=== PATIENT | female | born 1945 | race Caucasian/White ===

== ENCOUNTER 2018-04-04 11:01 | Emergency (ER) | payer MEDICARE ==
[~2018-04-04] VITALS: Ht 165.1 cm; Wt 81.6 kg
[2018-04-04] MEDS ORDERED: AMLODIPINE BESY10 MG PO (11:56)
[2018-04-04] MEDS ORDERED: LISINOPRIL10 MG PO (11:56)
[2018-04-04] MEDS ORDERED: MAGNESIUM/ALUMINUM/SIMETHICONE 30 ML UDC PO ONE (12:15)
--- NOTE | 2018-04-04 12:16 | Diagnostic Imaging Report ---
EXAM: PA and lateral views of the chest. COMPARISON: None CLINICAL HISTORY: FINDINGS: Lines/tubes: None. Lungs: The lungs are well inflated and clear. Pleura: There is no pleural effusion or pneumothorax. Heart and mediastinum: The cardiomediastinal silhouette is normal. Bones and soft tissues: Portable upright hardware overlying the lower cervical and upper thoracic spine. Mild infiltration of the right hemidiaphragm. IMPRESSION: No acute cardiopulmonary abnormalities. Signed by: Dr. Juanita Ellis M.D. on 04/04/2018 12:12 PM
== END 2018-04-04 13:04 | disposition home or self-care (01) ==
LOC: FSED 11:01
DX: R00.2 Palpitations (principal); F41.1 Generalized anxiety disorder; R53.1 Weakness; R42 Dizziness and giddiness; I10 Essential (primary) hypertension; E11.9 Type 2 diabetes mellitus without complications; J44.9 Chronic obstructive pulmonary disease, unspecified; N18.9 Chronic kidney disease, unspecified; F17.210 Nicotine dependence, cigarettes, uncomplicated
CPT/HCPCS: 71046; 80053; 81003; 82553; 84484; 85025; 93005; 99284

== ENCOUNTER 2019-02-06 19:48 | Emergency (ER) | payer MEDICARE ==
[~2019-02-06] VITALS: Ht 165.1 cm; Wt 81.6 kg
[~2019-02-06 19:48] MED LIST: AMLODIPINE BESY10 MG PO; LISINOPRIL10 MG PO
--- OUTSIDE RECORDS SUMMARY | 2019-02-06 19:51 | XMS REPORT ---
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 Allergies, Adverse Reactions, Alerts This patient has no known allergies or adverse reactions. Medications This patient has no known medications. Results Test Description Test Time Test Comments Text Results Atomic Results Result Comments POCT-GLUCOSE METER 2018-12-17 12:10:00 POC-GLUCOSE METER (BEAKER) (test yjly=6698) 158 mg/dL 70-110 TESTED AT [address] [address] BASIC METABOLIC [id number] 11:21:00* Test Item Value Reference Range Comments SODIUM (BEAKER) (test mgxt=453) 138 meq/L 136-145 POTASSIUM (BEAKER) (test ljqu=279) 3.5 meq/L 3.5-5.1 CHLORIDE (BEAKER) (test bpyk=578) 101 meq/L 98-107 CO2 (BEAKER) (test vhpj=736) 27 meq/L 22-29 BLOOD UREA NITROGEN (BEAKER) (test qjeu=426) 23 mg/dL 7-21 CREATININE (BEAKER) (test wnok=496) 1.31 mg/dL 0.57-1.25 GLUCOSE RANDOM (BEAKER) (test flnj=129) 180 mg/dL 70-105 CALCIUM (BEAKER) (test bzdy=423) 8.7 mg/dL 8.4-10.2 EGFR (BEAKER) (test emnv=0879) 40 mL/min/1.73 sq m ESTIMATED GFR IS NOT ACCURATE CREATININE CLEARANCE IN PREDICTING GLOMERULAR FILTRATION RATE. ESTIMATED GFR IS NOT APPLICABLE FOR DIALYSIS PATIENTS. POCT-GLUCOSE [id number] 09:00:00* Test Item Value Reference Range Comments POC-GLUCOSE METER (BEAKER) (test vnjn=3172) 119 mg/dL 70-110 TESTED AT [address] [address] BLOOD [id number] 02:01:00* Test Item Value Reference Range Comments CULTURE (BEAKER) (test kfwb=3809) No growth in 5 days BLOOD [id number] 02:01:00* Test Item Value Reference Range Comments CULTURE (BEAKER) (test vetu=3571) No growth in 5 days POCT-GLUCOSE [id number] 21:13:00* Test Item Value Reference Range Comments POC-GLUCOSE METER (BEAKER) (test tcmu=0887) 170 mg/dL 70-110 TESTED AT [address] [address] POCT-GLUCOSE [id number] 19:07:00* Test Item Value Reference Range Comments POC-GLUCOSE METER (BEAKER) (test czux=9545) 131 mg/dL 70-110 TESTED AT [address] [address] POCT-GLUCOSE [id number] 15:49:00* Test Item Value Reference Range Comments POC-GLUCOSE METER (BEAKER) (test pxlp=4957) 117 mg/dL 70-110 TESTED AT [address] [address] VANCOMYCIN LEVEL, [id number] 12:58:00* Test Item Value Reference Range Comments VANCOMYCIN TROUGH (BEAKER) (test oamj=444) 18.8 ug/mL 10.0-20.0 Hold vancomycin if trough >20POCT-GLUCOSE [id number] 12:13:00* Test Item Value Reference Range Comments POC-GLUCOSE METER (BEAKER) (test ofki=3513) 183 mg/dL 70-110 TESTED AT [address] [address] POCT-GLUCOSE [id number] 09:06:00* Test Item Value Reference Range Comments POC-GLUCOSE METER (BEAKER) (test iqbr=7952) 135 mg/dL 70-110 TESTED AT [address] [address] POCT-GLUCOSE [id number] 21:37:00* Test Item Value Reference Range Comments POC-GLUCOSE METER (BEAKER) (test xeie=1462) 175 mg/dL 70-110 TESTED AT [address] [address] RAD, CHEST, 2 [id number] 15:32:00Reason for exam:->coughFINAL REPORT INDICATION: cough COMPARISON: December 14, 2018 TECHNIQUE: Frontal and lateral views of the chest. IMPRESSION:Lungs and pleura: Bibasilar subsegmental atelectasis, greater on the left. Moderate to large left effusion unchanged.Heart and mediastinum: Normal heart size. Unremarkable mediastinal contours.Osseous structures: No acute abnormality.Additional findings: None. Signed: JR Azeem, Leonardo Allen Verified Date/Time: 12/15/2018 1 5:32:27 Reading Location: [address] Consult Reading Room Electronically si gned by: LEONARDO IGLESIAS on 12/15/2018 03:32 PM POCT-GLUCOSE METER 2018-12-15 12:51:00* Test Item Value Reference Range Comments POC-GLUCOSE METER (BEAKER) (test yaza=5347) 248 mg/dL 70-110 TESTED AT [place] [id number] [facility] [address] POCT-GLUCOSE [id number] 07:31:00* Test Item Value Reference Range Comments POC-GLUCOSE METER (BEAKER) (test nezq=9204) 128 mg/dL 70-110 TESTED AT [address] [address] [id number] 03:58:00* Test Item Value Reference Range Comments PHOSPHORUS (BEAKER) (test dmve=994) 3.2 mg/dL 2.3-4.7 [id number] 03:58:00* Test Item Value Reference Range Comments MAGNESIUM (BEAKER) (test fgjt=577) 2.0 mg/dL 1.6-2.6 COMPREHENSIVE METABOLIC [id number] 03:58:00* Test Item Value Reference Range Comments TOTAL PROTEIN (BEAKER) (test muri=898) 6.1 gm/dL 6.0-8.3 ALBUMIN (BEAKER) (test ixic=4509) 2.8 g/dL 3.5-5.0 ALKALINE PHOSPHATASE (BEAKER) (test fmdc=040) 80 U/L 40-150 BILIRUBIN TOTAL (BEAKER) (test gpke=482) 0.3 mg/dL 0.2-1.2 SODIUM (BEAKER) (test yuns=312) 137 meq/L 136-145 POTASSIUM (BEAKER) (test lnru=507) 4.4 meq/L 3.5-5.1 CHLORIDE (BEAKER) (test zshz=583) 103 meq/L 98-107 CO2 (BEAKER) (test tecj=505) 26 meq/L 22-29 BLOOD UREA NITROGEN (BEAKER) (test tjcn=469) 29 mg/dL 7-21 CREATININE (BEAKER) (test cmgh=659) 1.36 mg/dL 0.57-1.25 GLUCOSE RANDOM (BEAKER) (test yqic=097) 132 mg/dL 70-105 CALCIUM (BEAKER) (test hjxl=797) 8.0 mg/dL 8.4-10.2 AST (SGOT) (BEAKER) (test ezex=045) 14 U/L 5-34 ALT (SGPT) (BEAKER) (test uzvo=210) 13 U/L 6-55 EGFR (BEAKER) (test gxej=3399) 38 mL/min/1.73 sq m ESTIMATED GFR IS NOT ACCURATE CREATININE CLEARANCE IN PREDICTING GLOMERULAR FILTRATION RATE. ESTIMATED GFR IS NOT APPLICABLE FOR DIALYSIS PATIENTS. CBC W/PLT COUNT & AUTO [id number] 03:46:00* Test Item Value Reference Range Comments WHITE BLOOD CELL COUNT (BEAKER) (test swqu=015) 10.8 K/ L 3.5-10.5 RED BLOOD CELL COUNT (BEAKER) (test jnaf=585) 3.01 M/ L 3.93-5.22 HEMOGLOBIN (BEAKER) (test llvb=278) 8.0 GM/DL 11.2-15.7 HEMATOCRIT (BEAKER) (test dzwo=446) 26.0 % 34.1-44.9 MEAN CORPUSCULAR VOLUME (BEAKER) (test svuu=994) 86.4 fL 79.4-94.8 MEAN CORPUSCULAR HEMOGLOBIN (BEAKER) (test tdyd=928) 26.6 pg 25.6-32.2 MEAN CORPUSCULAR HEMOGLOBIN CONC (BEAKER) (test qivv=510) 30.8 GM/DL 32.2-35.5 RED CELL DISTRIBUTION WIDTH (BEAKER) (test ytcc=348) 16.7 % 11.7-14.4 PLATELET COUNT (BEAKER) (test quxg=669) 265 K/CU MM 150-450 MEAN PLATELET VOLUME (BEAKER) (test agvq=329) 9.1 fL 9.4-12.3 NUCLEATED RED BLOOD CELLS (BEAKER) (test uder=015) 0 /100 WBC 0-0 NEUTROPHILS RELATIVE PERCENT (BEAKER) (test jhqs=166) 79 % LYMPHOCYTES RELATIVE PERCENT (BEAKER) (test xfbb=542) 11 % MONOCYTES RELATIVE PERCENT (BEAKER) (test xaop=786) 8 % EOSINOPHILS RELATIVE PERCENT (BEAKER) (test hcwe=250) 1 % BASOPHILS RELATIVE PERCENT (BEAKER) (test kibr=512) 0 % NEUTROPHILS ABSOLUTE COUNT (BEAKER) (test brzp=485) 8.53 K/ L 1.56-6.13 LYMPHOCYTES ABSOLUTE COUNT (BEAKER) (test nyhz=679) 1.13 K/ L 1.18-3.74 MONOCYTES ABSOLUTE COUNT (BEAKER) (test jtlg=058) 0.82 K/ L 0.24-0.36 EOSINOPHILS ABSOLUTE COUNT (BEAKER) (test lazk=215) 0.11 K/ L 0.04-0.36 BASOPHILS ABSOLUTE COUNT (BEAKER) (test bwdx=027) 0.03 K/ L 0.01-0.08 IMMATURE GRANULOCYTES-RELATIVE PERCENT (BEAKER) (test axby=4201) 2 % 0-1 POCT-GLUCOSE [id number] 21:33:00* Test Item Value Reference Range Comments POC-GLUCOSE METER (BEAKER) (test bsux=9466) 164 mg/dL 70-110 TESTED AT [facility] [address] [facility] [address] POCT-GLUCOSE [id number] 17:04:00* Test Item Value Reference Range Comments POC-GLUCOSE METER (BEAKER) (test gdqv=9295) 147 mg/dL 70-110 TESTED AT [facility] [address] [facility] [address] HEMOGLOBIN AND [id number] 16:37:00* Test Item Value Reference Range Comments HEMOGLOBIN (BEAKER) (test mqni=382) 8.6 GM/DL 11.2-15.7 HEMATOCRIT (BEAKER) (test potl=064) 27.2 % 34.1-44.9 POCT-GLUCOSE [id number] 14:39:00* Test Item Value Reference Range Comments POC-GLUCOSE METER (BEAKER) (test aaxp=9482) 193 mg/dL 70-110 TESTED AT [facility] [address] [facility] [address] POCT-GLUCOSE [id number] 08:05:00* Test Item Value Reference Range Comments POC-GLUCOSE METER (BEAKER) (test wyyu=3436) 154 mg/dL 70-110 TESTED AT [facility] [address] [facility] [address] RAD, CHEST, 1 VIEW, NON [id number] 07:44:00Reason for exam:->coughShould this be performed at the bedside?->YesFINAL REPORT Chest, one view HISTORY: Cough Comparison: 12/12/2018 Findings: Lungs: Stable left basilar consolidation. Heart: Normal in size. Pleura: Stable left pleural effusion. No pneumothorax is appreciated. Bones: Unremarkable. Lines/tubes: Interval removal of previous Mchenry-Natacha catheter. IMPRESSION: No significant interval change. Signed: Chuy Coughlin [facility] Verified Date/Time: 12/14/2018 07:44:05 Reading Location: [facility] [id number] Ortho Consult Reading Room ESIUM 2018-12-14 07:35:00* Test Item Value Reference Range Comments MAGNESIUM (BEAKER) (test skpc=537) 2.1 mg/dL 1.6-2.6 COMPREHENSIVE METABOLIC [id number] 07:35:00* Test Item Value Reference Range Comments TOTAL PROTEIN (BEAKER) (test kkod=740) 5.8 gm/dL 6.0-8.3 ALBUMIN (BEAKER) (test imhp=8776) 2.7 g/dL 3.5-5.0 ALKALINE PHOSPHATASE (BEAKER) (test lcjz=649) 76 U/L 40-150 BILIRUBIN TOTAL (BEAKER) (test ldpq=454) 0.3 mg/dL 0.2-1.2 SODIUM (BEAKER) (test srlo=391) 137 meq/L 136-145 POTASSIUM (BEAKER) (test rzpj=764) 4.0 meq/L 3.5-5.1 CHLORIDE (BEAKER) (test eied=324) 105 meq/L 98-107 CO2 (BEAKER) (test cnyp=167) 21 meq/L 22-29 BLOOD UREA NITROGEN (BEAKER) (test vibb=716) 31 mg/dL 7-21 CREATININE (BEAKER) (test cwxq=246) 1.50 mg/dL 0.57-1.25 GLUCOSE RANDOM (BEAKER) (test wzxl=443) 119 mg/dL 70-105 CALCIUM (BEAKER) (test nmpg=243) 8.3 mg/dL 8.4-10.2 AST (SGOT) (BEAKER) (test awdi=771) 17 U/L 5-34 ALT (SGPT) (BEAKER) (test objj=303) 9 U/L 6-55 EGFR (BEAKER) (test rbai=8560) 34 mL/min/1.73 sq m ESTIMATED GFR IS NOT ACCURATE CREATININE CLEARANCE IN PREDICTING GLOMERULAR FILTRATION RATE. ESTIMATED GFR IS NOT APPLICABLE FOR DIALYSIS PATIENTS. Specimen slightly [id number] 07:34:00* Test Item Value Reference Range Comments PHOSPHORUS (BEAKER) (test pats=852) 2.8 mg/dL 2.3-4.7 CBC W/PLT COUNT & AUTO [id number] 04:06:00* Test Item Value Reference Range Comments WHITE BLOOD CELL COUNT (BEAKER) (test dnuo=189) 10.8 K/ L 3.5-10.5 RED BLOOD CELL COUNT (BEAKER) (test bowr=512) 2.82 M/ L 3.93-5.22 HEMOGLOBIN (BEAKER) (test jqyj=732) 7.6 GM/DL 11.2-15.7 HEMATOCRIT (BEAKER) (test nvsb=330) 24.0 % 34.1-44.9 MEAN CORPUSCULAR VOLUME (BEAKER) (test sbxy=351) 85.1 fL 79.4-94.8 MEAN CORPUSCULAR HEMOGLOBIN (BEAKER) (test lvnn=252) 27.0 pg 25.6-32.2 MEAN CORPUSCULAR HEMOGLOBIN CONC (BEAKER) (test sryh=519) 31.7 GM/DL 32.2-35.5 RED CELL DISTRIBUTION WIDTH (BEAKER) (test xmot=497) 16.5 % 11.7-14.4 PLATELET COUNT (BEAKER) (test oggl=713) 225 K/CU MM 150-450 MEAN PLATELET VOLUME (BEAKER) (test hsgc=204) 9.6 fL 9.4-12.3 NUCLEATED RED BLOOD CELLS (BEAKER) (test fijx=090) 0 /100 WBC 0-0 NEUTROPHILS RELATIVE PERCENT (BEAKER) (test olrn=890) 78 % LYMPHOCYTES RELATIVE PERCENT (BEAKER) (test bxao=900) 12 % MONOCYTES RELATIVE PERCENT (BEAKER) (test gtce=027) 8 % EOSINOPHILS RELATIVE PERCENT (BEAKER) (test yrsu=256) 1 % BASOPHILS RELATIVE PERCENT (BEAKER) (test vjqr=494) 0 % NEUTROPHILS ABSOLUTE COUNT (BEAKER) (test ctcm=993) 8.41 K/ L 1.56-6.13 LYMPHOCYTES ABSOLUTE COUNT (BEAKER) (test rurz=223) 1.24 K/ L 1.18-3.74 MONOCYTES ABSOLUTE COUNT (BEAKER) (test azmz=990) 0.89 K/ L 0.24-0.36 EOSINOPHILS ABSOLUTE COUNT (BEAKER) (test srtc=456) 0.08 K/ L 0.04-0.36 BASOPHILS ABSOLUTE COUNT (BEAKER) (test holv=075) 0.02 K/ L 0.01-0.08 IMMATURE GRANULOCYTES-RELATIVE PERCENT (BEAKER) (test qotb=0784) 1 % 0-1 POCT-GLUCOSE [id number] 21:39:00* Test Item Value Reference Range Comments POC-GLUCOSE METER (BEAKER) (test enpj=1925) 167 mg/dL 70-110 TESTED AT [address] [address] HEMOGLOBIN AND [id number] 20:38:00* Test Item Value Reference Range Comments HEMOGLOBIN (BEAKER) (test ghtw=700) 8.5 GM/DL 11.2-15.7 HEMATOCRIT (BEAKER) (test owbq=682) 26.9 % 34.1-44.9 POCT-GLUCOSE [id number] 18:09:00* Test Item Value Reference Range Comments POC-GLUCOSE METER (BEAKER) (test iqhi=4180) 222 mg/dL 70-110 TESTED AT [address] [address] VANCOMYCIN LEVEL, [id number] 15:52:00* Test Item Value Reference Range Comments VANCOMYCIN RANDOM (BEAKER) (test lxod=923) 14.6 ug/mL Reference Range: No NormalsHEMOGLOBIN AND [id number] 15:31:00* Test Item Value Reference Range Comments HEMOGLOBIN (BEAKER) (test riov=466) 8.6 GM/DL 11.2-15.7 HEMATOCRIT (BEAKER) (test bkou=792) 27.2 % 34.1-44.9 POCT-GLUCOSE [id number] 12:41:00* Test Item Value Reference Range Comments POC-GLUCOSE METER (BEAKER) (test ilno=5497) 212 mg/dL 70-110 TESTED AT [facility] [address] [facility] [address] POCT-GLUCOSE [id number] 08:08:00* Test Item Value Reference Range Comments POC-GLUCOSE METER (BEAKER) (test qjgy=4157) 226 mg/dL 70-110 TESTED AT [place] [address] [facility] [address] COMPREHENSIVE METABOLIC [id number] 06:31:00* Test Item Value Reference Range Comments TOTAL PROTEIN (BEAKER) (test mbwy=530) 5.6 gm/dL 6.0-8.3 ALBUMIN (BEAKER) (test oosj=9912) 2.6 g/dL 3.5-5.0 ALKALINE PHOSPHATASE (BEAKER) (test bkpo=397) 65 U/L 40-150 BILIRUBIN TOTAL (BEAKER) (test lyxi=212) 0.4 mg/dL 0.2-1.2 SODIUM (BEAKER) (test ixtj=318) 131 meq/L 136-145 POTASSIUM (BEAKER) (test vrbd=395) 4.1 meq/L 3.5-5.1 CHLORIDE (BEAKER) (test qblj=256) 101 meq/L 98-107 CO2 (BEAKER) (test hypu=606) 20 meq/L 22-29 BLOOD UREA NITROGEN (BEAKER) (test auos=905) 34 mg/dL 7-21 CREATININE (BEAKER) (test actg=779) 2.02 mg/dL 0.57-1.25 GLUCOSE RANDOM (BEAKER) (test urxj=545) 185 mg/dL 70-105 CALCIUM (BEAKER) (test wgvo=687) 7.7 mg/dL 8.4-10.2 AST (SGOT) (BEAKER) (test aapt=271) 11 U/L 5-34 ALT (SGPT) (BEAKER) (test fonp=795) 8 U/L 6-55 EGFR (BEAKER) (test tcce=9207) 24 mL/min/1.73 sq m ESTIMATED GFR IS NOT ACCURATE CREATININE CLEARANCE IN PREDICTING GLOMERULAR FILTRATION RATE. ESTIMATED GFR IS NOT APPLICABLE FOR DIALYSIS PATIENTS. [id number] 06:09:00* Test Item Value Reference Range Comments PHOSPHORUS (BEAKER) (test vwyw=578) 3.4 mg/dL 2.3-4.7 [id number] 06:09:00* Test Item Value Reference Range Comments MAGNESIUM (BEAKER) (test abcq=658) 1.6 mg/dL 1.6-2.6 CBC W/PLT COUNT & AUTO [id number] 04:34:00* Test Item Value Reference Range Comments WHITE BLOOD CELL COUNT (BEAKER) (test ytdx=977) 13.0 K/ L 3.5-10.5 RED BLOOD CELL COUNT (BEAKER) (test blfh=883) 2.70 M/ L 3.93-5.22 HEMOGLOBIN (BEAKER) (test pzjw=547) 7.4 GM/DL 11.2-15.7 HEMATOCRIT (BEAKER) (test hbls=816) 23.3 % 34.1-44.9 MEAN CORPUSCULAR VOLUME (BEAKER) (test porx=720) 86.3 fL 79.4-94.8 MEAN CORPUSCULAR HEMOGLOBIN (BEAKER) (test lbui=041) 27.4 pg 25.6-32.2 MEAN CORPUSCULAR HEMOGLOBIN CONC (BEAKER) (test uuah=263) 31.8 GM/DL 32.2-35.5 RED CELL DISTRIBUTION WIDTH (BEAKER) (test xyax=095) 16.6 % 11.7-14.4 PLATELET COUNT (BEAKER) (test blwp=273) 162 K/CU MM 150-450 MEAN PLATELET VOLUME (BEAKER) (test cwiu=082) 9.3 fL 9.4-12.3 NUCLEATED RED BLOOD CELLS (BEAKER) (test blfc=019) 0 /100 WBC 0-0 NEUTROPHILS RELATIVE PERCENT (BEAKER) (test lwws=446) 83 % LYMPHOCYTES RELATIVE PERCENT (BEAKER) (test ghvo=656) 9 % MONOCYTES RELATIVE PERCENT (BEAKER) (test octo=620) 8 % EOSINOPHILS RELATIVE PERCENT (BEAKER) (test xysl=215) 0 % BASOPHILS RELATIVE PERCENT (BEAKER) (test cwuf=102) 0 % NEUTROPHILS ABSOLUTE COUNT (BEAKER) (test mrud=408) 10.71 K/ L 1.56-6.13 LYMPHOCYTES ABSOLUTE COUNT (BEAKER) (test drqp=830) 1.12 K/ L 1.18-3.74 MONOCYTES ABSOLUTE COUNT (BEAKER) (test klqv=034) 0.98 K/ L 0.24-0.36 EOSINOPHILS ABSOLUTE COUNT (BEAKER) (test mhds=831) 0.02 K/ L 0.04-0.36 BASOPHILS ABSOLUTE COUNT (BEAKER) (test bkbr=502) 0.03 K/ L 0.01-0.08 IMMATURE GRANULOCYTES-RELATIVE PERCENT (BEAKER) (test djxf=0984) 1 % 0-1 POCT-GLUCOSE [id number] 22:51:00* Test Item Value Reference Range Comments POC-GLUCOSE METER (BEAKER) (test lkzu=0906) 240 mg/dL 70-110 TESTED AT [facility] [address] [facility] [address] BLOOD GAS, [id number] 21:11:00* Test Item Value Reference Range Comments PH ARTERIAL (BEAKER) (test yqpr=257) 7.42 7.35-7.45 PCO2 ARTERIAL (BEAKER) (test jhxv=818) 33 mmHg 35-45 PO2 ARTERIAL (BEAKER) (test ntfu=651) 179 mmHg 80-90 O2 SATURATION ARTERIAL (BEAKER) (test znjs=198) 99.3 % 96.0-97.0 HCO3 ARTERIAL (BEAKER) (test wuqb=462) 21 mmol/L 21-29 BASE EXCESS ARTERIAL (BEAKER) (test wtxf=103) -3.2 mmol/L -2.0-3.0 PATIENT TEMPERATURE (BEAKER) (test zfnd=2642) 37.2 C FIO2 (BEAKER) (test uemd=3706) 85.0 % CREATININE, RANDOM [id number] 19:54:00* Test Item Value Reference Range Comments CREATININE URINE (BEAKER) (test bcuw=108) 82.5 mg/dL Reference Range: No NormalsSODIUM, RANDOM [id number] 19:54:00* Test Item Value Reference Range Comments SODIUM URINE (BEAKER) (test izye=699) 57 meq/L Reference Range: No NormalsPOCT-GLUCOSE [id number] 17:50:00* Test Item Value Reference Range Comments POC-GLUCOSE METER (BEAKER) (test lptl=5724) 131 mg/dL 70-110 TESTED AT [facility] [address] [facility] [address] RAD, CHEST, 1 VIEW, NON [id number] 17:21:00Reason for exam:->SOBShould this be performed at the bedside?->YesFINAL REPORT INDICATION: SOB TECHNIQUE: Chest radiograph, single view, portable technique. FINDINGS / IMPRESSION: Comparison to December 11 at 7:14 PM.Interval placement of thrombolytic catheters in the pulmonary arteries from the right internal jugular vein.Left pleural effusion is increased in size and new left peripheral midlung opacity.Right lung remains clear. Lower cervical fusion hardware again noted. Signed: Stevo Valle MDReport Verified Date/Time: 12/12/2018 17:21:55 Reading Location: [address] Ortho Consult Reading Room -GLUCOSE METER 2018-12-12 12:41:00* Test Item Value Reference Range Comments POC-GLUCOSE METER (BEAKER) (test xqgv=2105) 228 mg/dL 70-110 TESTED AT [place] [id number] [facility] [address] VANCOMYCIN LEVEL, [id number] 11:34:00* Test Item Value Reference Range Comments VANCOMYCIN RANDOM (BEAKER) (test uwly=348) 14.3 ug/mL Reference Range: No NormalsPOCT-GLUCOSE [id number] 08:57:00* Test Item Value Reference Range Comments POC-GLUCOSE METER (BEAKER) (test ubxt=4466) 152 mg/dL 70-110 TESTED AT [facility] [address] [facility] [address] TROPONIN [id number] 07:04:00* Test Item Value Reference Range Comments TROPONIN I (BEAKER) (test dldx=128) 0.03 ng/mL 0.00-0.03 Troponin I (TnI) levels must be interpreted in the context of the presenting sym ptoms and the clinical findings. Elevated TnI levels indicate myocardial damage, but are not specific for ischemic heart disease. Elevated TnI levels are seen in patients with other cardiac conditions (including myocarditis and congestive h eart failure), and slight TnI elevations occur in patients with other conditions , including sepsis, renal failure, acidosis, acute neurological disease, and per sistent tachyarrhythmia.[id number] 04:07:00* Test Item Value Reference Range Comments PROCALCITONIN (BEAKER) (test lgfs=7771) 0.32 ng/mL <0.05 SEPSIS RISK (ng/mL)Low: 0.05-0.50Intermediate: 0.51-2.00High: > =2.79W-[id number] 03:36:00* Test Item Value Reference Range Comments D-DIMER QUANTITATIVE (BEAKER) (test lsck=496) 5.86 MG/L FEU <0.50 Intended Use: The D-Dimer Assay can be used to aid in the diagnosis of Deep Vein Thrombosis (DVT) and Pulmonary Embolism Disease (PED).In patients with low pre- test probability, various studies concerning STA Liatest D-dimer test have repor shelby that with a cutoff value of 0.50 MG/L FEU, the Negative Predictive Value (REGULATORY INTERN V) regarding the exclusion of thrombosis is within 95-100% range.B-TYPE NATRIURETIC FACTOR (BNP)2018-12-12 03:31:00* Test Item Value Reference Range Comments B-TYPE NATRIURETIC PEPTIDE (BEAKER) (test jpfy=784) 668 pg/mL 0-100 BASIC METABOLIC [id number] 03:29:00* Test Item Value Reference Range Comments SODIUM (BEAKER) (test iecf=872) 130 meq/L 136-145 POTASSIUM (BEAKER) (test phwv=945) 4.9 meq/L 3.5-5.1 CHLORIDE (BEAKER) (test hejb=985) 99 meq/L 98-107 CO2 (BEAKER) (test ozrn=974) 21 meq/L 22-29 BLOOD UREA NITROGEN (BEAKER) (test doch=834) 39 mg/dL 7-21 CREATININE (BEAKER) (test nevy=054) 2.48 mg/dL 0.57-1.25 GLUCOSE RANDOM (BEAKER) (test anfg=116) 151 mg/dL 70-105 CALCIUM (BEAKER) (test nucy=479) 9.1 mg/dL 8.4-10.2 EGFR (BEAKER) (test sgmn=5369) 19 mL/min/1.73 sq m ESTIMATED GFR IS NOT ACCURATE CREATININE CLEARANCE IN PREDICTING GLOMERULAR FILTRATION RATE. ESTIMATED GFR IS NOT APPLICABLE FOR DIALYSIS PATIENTS. LACTIC ACID, [id number] 03:20:00* Test Item Value Reference Range Comments LACTATE BLOOD VENOUS (2) (BEAKER) (test xgdi=2238) 1.0 mmol/L 0.5-2.2 CBC W/PLT COUNT & AUTO [id number] 02:56:00* Test Item Value Reference Range Comments WHITE BLOOD CELL COUNT (BEAKER) (test fskb=040) 14.5 K/ L 3.5-10.5 RED BLOOD CELL COUNT (BEAKER) (test ghsc=533) 3.29 M/ L 3.93-5.22 HEMOGLOBIN (BEAKER) (test iwwp=820) 9.0 GM/DL 11.2-15.7 HEMATOCRIT (BEAKER) (test wkql=375) 28.8 % 34.1-44.9 MEAN CORPUSCULAR VOLUME (BEAKER) (test ynox=146) 87.5 fL 79.4-94.8 MEAN CORPUSCULAR HEMOGLOBIN (BEAKER) (test otxg=887) 27.4 pg 25.6-32.2 MEAN CORPUSCULAR HEMOGLOBIN CONC (BEAKER) (test zfwf=875) 31.3 GM/DL 32.2-35.5 RED CELL DISTRIBUTION WIDTH (BEAKER) (test fker=893) 16.7 % 11.7-14.4 PLATELET COUNT (BEAKER) (test gjqm=092) 223 K/CU MM 150-450 MEAN PLATELET VOLUME (BEAKER) (test zuns=394) 9.3 fL 9.4-12.3 NUCLEATED RED BLOOD CELLS (BEAKER) (test oast=938) 0 /100 WBC 0-0 NEUTROPHILS RELATIVE PERCENT (BEAKER) (test qpjw=926) 79 % LYMPHOCYTES RELATIVE PERCENT (BEAKER) (test rymx=144) 11 % MONOCYTES RELATIVE PERCENT (BEAKER) (test tcmr=153) 8 % EOSINOPHILS RELATIVE PERCENT (BEAKER) (test puhx=286) 0 % BASOPHILS RELATIVE PERCENT (BEAKER) (test mcep=571) 0 % NEUTROPHILS ABSOLUTE COUNT (BEAKER) (test fmgc=048) 11.43 K/ L 1.56-6.13 LYMPHOCYTES ABSOLUTE COUNT (BEAKER) (test dsjr=566) 1.66 K/ L 1.18-3.74 MONOCYTES ABSOLUTE COUNT (BEAKER) (test fzxm=069) 1.22 K/ L 0.24-0.36 EOSINOPHILS ABSOLUTE COUNT (BEAKER) (test ghgf=236) 0.04 K/ L 0.04-0.36 BASOPHILS ABSOLUTE COUNT (BEAKER) (test jygg=525) 0.02 K/ L 0.01-0.08 IMMATURE GRANULOCYTES-RELATIVE PERCENT (BEAKER) (test ywhp=6593) 1 % 0-1 TROPONIN [id number] 23:51:00* Test Item Value Reference Range Comments TROPONIN I (BEAKER) (test vlej=134) 0.04 ng/mL 0.00-0.03 Troponin I (TnI) levels must be interpreted in the context of the presenting sym ptoms and the clinical findings. Elevated TnI levels indicate myocardial damage, but are not specific for ischemic heart disease. Elevated TnI levels are seen in patients with other cardiac conditions (including myocarditis and congestive h eart failure), and slight TnI elevations occur in patients with other conditions , including sepsis, renal failure, acidosis, acute neurological disease, and per sistent tachyarrhythmia.POCT-GLUCOSE [id number] 21:59:00* Test Item Value Reference Range Comments POC-GLUCOSE METER (BEAKER) (test kdub=5102) 136 mg/dL 70-110 TESTED AT [facility] [address] [facility] [address] BASIC METABOLIC [id number] 20:41:00* Test Item Value Reference Range Comments SODIUM (BEAKER) (test mvnp=395) 133 meq/L 136-145 POTASSIUM (BEAKER) (test hsuv=824) 5.0 meq/L 3.5-5.1 CHLORIDE (BEAKER) (test rbvk=248) 98 meq/L 98-107 CO2 (BEAKER) (test ohek=345) 26 meq/L 22-29 BLOOD UREA NITROGEN (BEAKER) (test wugl=033) 35 mg/dL 7-21 CREATININE (BEAKER) (test xqul=457) 2.35 mg/dL 0.57-1.25 GLUCOSE RANDOM (BEAKER) (test hfrl=410) 117 mg/dL 70-105 CALCIUM (BEAKER) (test vwnj=150) 9.9 mg/dL 8.4-10.2 EGFR (BEAKER) (test zmaw=9288) 20 mL/min/1.73 sq m ESTIMATED GFR IS NOT ACCURATE CREATININE CLEARANCE IN PREDICTING GLOMERULAR FILTRATION RATE. ESTIMATED GFR IS NOT APPLICABLE FOR DIALYSIS PATIENTS. [id number] 20:37:00* Test Item Value Reference Range Comments D-DIMER QUANTITATIVE (BEAKER) (test qovp=118) 6.43 MG/L FEU <0.50 Intended Use: The D-Dimer Assay can be used to aid in the diagnosis of Deep Vein Thrombosis (DVT) and Pulmonary Embolism Disease (PED).In patients with low pre- test probability, various studies concerning STA Liatest D-dimer test have repor shelby that with a cutoff value of 0.50 MG/L FEU, the Negative Predictive Value (REGULATORY INTERN V) regarding the exclusion of thrombosis is within 95-100% range.RAD, CHEST, 1 VIEW, NON [id number] 20:11:00Reason for exam:->POST-OP PROBLEMReason for exam:->shortness of breath, hypoxiaShould this be performed at the bedside?->Yes FINAL REPORT AP chest dated 12/11/2018 Comment: Heart is no rmal in size. Pulmonary vasculature is unremarkable. There is opacity in the lef t lower lobe suggestive of subsegmental atelectasis or pneumonia. Soft tissue fu llness is also seen in the right lung bases suggest atelectasis or pneumonia. Th ere is a small left pleural effusion. IMPRESSION: Opacities in both lower lobes suggestive of subsegmental atelectasis or pneumonia and left pleural effusion. S igned: Alexandra Boyle MDReport Verified Date/Time: 12/11/2018 20:11:17 Reading Loc ation: [facility] B1 [id number] Consult Reading Room D GAS, [id number] 19:49:00* Test Item Value Reference Range Comments PH ARTERIAL (BEAKER) (test cqxi=211) 7.45 7.35-7.45 PCO2 ARTERIAL (BEAKER) (test mhwt=827) 33 mmHg 35-45 PO2 ARTERIAL (BEAKER) (test gaeu=031) 269 mmHg 80-90 O2 SATURATION ARTERIAL (BEAKER) (test mtbs=624) 99.7 % 96.0-97.0 HCO3 ARTERIAL (BEAKER) (test qqnf=836) 22 mmol/L 21-29 BASE EXCESS ARTERIAL (BEAKER) (test rmoh=433) -1.1 mmol/L -2.0-3.0 PATIENT TEMPERATURE (BEAKER) (test ztgk=6112) 38.0 C FIO2 (BEAKER) (test tses=0413) 40.0 % TROPONIN [id number] 19:31:00* Test Item Value Reference Range Comments TROPONIN I (BEAKER) (test tbhu=692) 0.04 ng/mL 0.00-0.03 Troponin I (TnI) levels must be interpreted in the context of the presenting sym ptoms and the clinical findings. Elevated TnI levels indicate myocardial damage, but are not specific for ischemic heart disease. Elevated TnI levels are seen in patients with other cardiac conditions (including myocarditis and congestive h eart failure), and slight TnI elevations occur in patients with other conditions , including sepsis, renal failure, acidosis, acute neurological disease, and per sistent tachyarrhythmia.BASIC METABOLIC [id number] 19:27:00* Test Item Value Reference Range Comments SODIUM (BEAKER) (test ocbg=491) 133 meq/L 136-145 POTASSIUM (BEAKER) (test hjhu=870) 5.1 meq/L 3.5-5.1 Specimen slightly hemolyzed CHLORIDE (BEAKER) (test egeg=320) 98 meq/L 98-107 CO2 (BEAKER) (test fcri=958) 25 meq/L 22-29 BLOOD UREA NITROGEN (BEAKER) (test iklh=810) 35 mg/dL 7-21 CREATININE (BEAKER) (test togj=748) 2.27 mg/dL 0.57-1.25 Specimen slightly hemolyzed GLUCOSE RANDOM (BEAKER) (test rstz=686) 122 mg/dL 70-105 CALCIUM (BEAKER) (test ictj=772) 10.1 mg/dL 8.4-10.2 EGFR (BEAKER) (test jwgq=1700) 21 mL/min/1.73 sq m ESTIMATED GFR IS NOT ACCURATE CREATININE CLEARANCE IN PREDICTING GLOMERULAR FILTRATION RATE. ESTIMATED GFR IS NOT APPLICABLE FOR DIALYSIS PATIENTS. HEPATIC FUNCTION [id number] 19:25:00* Test Item Value Reference Range Comments TOTAL PROTEIN (BEAKER) (test pbfa=624) 7.5 gm/dL 6.0-8.3 Specimen slightly hemolyzed ALBUMIN (BEAKER) (test dzfj=2048) 3.6 g/dL 3.5-5.0 Specimen slightly hemolyzed BILIRUBIN TOTAL (BEAKER) (test ygtc=171) 0.4 mg/dL 0.2-1.2 Specimen slightly hemolyzed BILIRUBIN DIRECT (BEAKER) (test hble=213) 0.2 mg/dL 0.1-0.5 Specimen slightly hemolyzed ALKALINE PHOSPHATASE (BEAKER) (test ydrk=889) 81 U/L 40-150 AST (SGOT) (BEAKER) (test xzwk=798) 14 U/L 5-34 Specimen slightly hemolyzed ALT (SGPT) (BEAKER) (test cbtk=064) 10 U/L 6-55 Specimen slightly hemolyzed CREATINE KINASE (CK)2018-12-11 19:25:00* Test Item Value Reference Range Comments CREATINE KINASE TOTAL (BEAKER) (test ftcu=117) 48 U/L 29-200 CBC W/PLT COUNT & AUTO [id number] 19:10:00* Test Item Value Reference Range Comments WHITE BLOOD CELL COUNT (BEAKER) (test igaj=943) 14.7 K/ L 3.5-10.5 RED BLOOD CELL COUNT (BEAKER) (test cblw=761) 3.88 M/ L 3.93-5.22 HEMOGLOBIN (BEAKER) (test buzz=160) 10.5 GM/DL 11.2-15.7 HEMATOCRIT (BEAKER) (test psgp=128) 33.6 % 34.1-44.9 MEAN CORPUSCULAR VOLUME (BEAKER) (test xupv=361) 86.6 fL 79.4-94.8 MEAN CORPUSCULAR HEMOGLOBIN (BEAKER) (test qmur=591) 27.1 pg 25.6-32.2 MEAN CORPUSCULAR HEMOGLOBIN CONC (BEAKER) (test bdwp=254) 31.3 GM/DL 32.2-35.5 RED CELL DISTRIBUTION WIDTH (BEAKER) (test exkg=535) 17.0 % 11.7-14.4 PLATELET COUNT (BEAKER) (test kxld=887) 267 K/CU MM 150-450 MEAN PLATELET VOLUME (BEAKER) (test kazz=872) 9.9 fL 9.4-12.3 NUCLEATED RED BLOOD CELLS (BEAKER) (test gadk=844) 0 /100 WBC 0-0 NEUTROPHILS RELATIVE PERCENT (BEAKER) (test oghn=629) 80 % LYMPHOCYTES RELATIVE PERCENT (BEAKER) (test pvkl=111) 10 % MONOCYTES RELATIVE PERCENT (BEAKER) (test izfg=959) 8 % EOSINOPHILS RELATIVE PERCENT (BEAKER) (test owan=434) 0 % BASOPHILS RELATIVE PERCENT (BEAKER) (test slxl=281) 0 % NEUTROPHILS ABSOLUTE COUNT (BEAKER) (test drgi=117) 11.81 K/ L 1.56-6.13 LYMPHOCYTES ABSOLUTE COUNT (BEAKER) (test hchj=795) 1.52 K/ L 1.18-3.74 MONOCYTES ABSOLUTE COUNT (BEAKER) (test eaog=657) 1.20 K/ L 0.24-0.36 EOSINOPHILS ABSOLUTE COUNT (BEAKER) (test gycb=070) 0.04 K/ L 0.04-0.36 BASOPHILS ABSOLUTE COUNT (BEAKER) (test venm=062) 0.04 K/ L 0.01-0.08 IMMATURE GRANULOCYTES-RELATIVE PERCENT (BEAKER) (test qxgd=5596) 1 % 0-1 BLOOD GAS, [id number] 18:52:00* Test Item Value Reference Range Comments PH VENOUS (BEAKER) (test tvoi=916) 7.40 7.32-7.42 PCO2 VENOUS (BEAKER) (test moxs=183) 41 mmHg 41-51 PO2 VENOUS (BEAKER) (test dtjn=089) 21 mmHg 25-40 O2 SATURATION VENOUS (BEAKER) (test qnaw=891) 33.6 % 40.0-70.0 HCO3 VENOUS (BEAKER) (test fylm=676) 25 mmol/L 21-29 BASE EXCESS VENOUS (BEAKER) (test uqup=967) 0.1 mmol/L -2.0-3.0 PATIENT TEMPERATURE (BEAKER) (test hwmb=7714) 37.0 C FIO2 (BEAKER) (test kyul=3714) 21.0 % POCT-LACTIC ACID, [id number] 18:48:00* Test Item Value Reference Range Comments POC-LACTIC ACID, VENOUS (BEAKER) (test koir=6383) 1.3 mmol/L 0.9-1.[address] [address] POCT-GLUCOSE [id number] 13:53:00* Test Item Value Reference Range Comments POC-GLUCOSE METER (BEAKER) (test zpko=2053) 166 mg/dL 70-110 TESTED AT [address] [address] POCT-GLUCOSE [id number] 06:44:00* Test Item Value Reference Range Comments POC-GLUCOSE METER (BEAKER) (test hxeg=8792) 148 mg/dL 70-110 TESTED AT [address] [address] CXR 2 VIEW - [id number] 12:11:00 [place] [id number] Patient Name: SUNDAY SHAFER MR #: [id number] : 1945 Age/Sex: 73/F Req #: [id number] Adm Physician: Ordered by: PETER GRIGSBY MD Report #: [id number] Location: [facility] Room/Bed: Procedure: [id number] HOPD/ CXR 2 VIEW - HOPD Exam Date: 04/04/18 Exam Time: 120 2 REPORT STATUS: Signed EXAM: PA and lateral views of the chest. COMPARISON: None CLINICAL HISTORY: FINDINGS: Lines/tubes: None. Lungs: The lungs are well inflated and clear. Pleura: There is no pleural effusion or pneu mothorax. Heart and mediastinum: The cardiomediastinal silhouette is harpal l. Bones and soft tissues: Portable upright hardware overlying the lower c ervical and upper thoracic spine. Mild infiltration of the right hemidiaphragm . IMPRESSION: No acute cardiopulmonary abnormalities. Signed by: Dr. Juanita Lawson M.D. on 04/04/2018 12:12 PM Dicta shelby By: JUANITA LAWSON MD 11 Transcribed By: ELIZABETH on 04/04/181211 COPY T O: PETER GRIGSBY MD
== END 2019-02-06 20:55 | disposition home or self-care (01) ==
LOC: FSED 19:48
DX: J20.9 Acute bronchitis, unspecified (principal); M79.89 Other specified soft tissue disorders; Z86.718 Personal history of other venous thrombosis and embolism; Z79.01 Long term (current) use of anticoagulants; I10 Essential (primary) hypertension; Z87.891 Personal history of nicotine dependence; J45.909 Unspecified asthma, uncomplicated; Z86.711 Personal history of pulmonary embolism
CPT/HCPCS: 99282

== ENCOUNTER 2019-11-20 21:03 | Emergency (ER) | payer SELFPAY ==
[2019-11-20] MEDS ORDERED: CLONIDINE HCL 0.2 MG TAB PO ONE (21:30)
[2019-11-20] MEDS ORDERED: CYCLOBENZAPRINE HCL 10 MG TAB PO ONE (21:30)
== END 2019-11-20 21:05 | disposition left against medical advice (07) ==
LOC: FSED 21:03
DX: R69 Illness, unspecified (principal)

== ENCOUNTER 2022-01-18 11:20 | Inpatient (IN) | payer MEDICARE ==
[~2022-01-18] VITALS: Ht 165.1 cm; Wt 75.7 kg
[~2022-01-18 11:20] MED LIST changes: +DOXYCYCLINE HY100 MG PO; +MEDROL4 MG PO
[2022-01-18] MEDS ORDERED: PROTONIX20 MG PO (12:17)
[2022-01-18] MEDS ORDERED: MELATONIN3 MG PO (12:17)
[2022-01-18] MEDS ORDERED: FAMOTIDINE40 MG (12:17)
[2022-01-18] MEDS ORDERED: LISINOPRIL10 MG PO (12:17)
[2022-01-18] MEDS ORDERED: PROVENTIL HFA6.7 GM INH (12:17)
[2022-01-18] MEDS ORDERED: NEURONTIN300 MG PO (12:17)
[2022-01-18] MEDS ORDERED: FLUTICASONE P15.8 ML (12:17)
[2022-01-18] MEDS ORDERED: ATORVASTATIN CA20 MG PO (12:17)
[2022-01-18] MEDS ORDERED: ALLOPURINOL100 MG PO (12:17)
[2022-01-18] MEDS ORDERED: ELIQUIS5 MG PO (12:17)
[2022-01-18] MEDS ORDERED: CALCIUM 600 +1 EACH (12:17)
[2022-01-18] MEDS ORDERED: ROSADAN 0.75%1 EACH (12:17)
[2022-01-18] MEDS ORDERED: GLIPIZIDE5 MG PO (12:17)
[2022-01-18] MEDS ORDERED: HYDROCORTISONE114 GM TOP (12:17)
[2022-01-18] MEDS ORDERED: FLUOCINONIDE-E15 GM (12:17)
[2022-01-18] MEDS ORDERED: LEVALBUTEROL TA15 GM INH (12:17)
[2022-01-18] MEDS ORDERED: DYMISTA NASAL S23 GM INH (12:17)
[2022-01-18] MEDS ORDERED: CELEXA20 MG PO (12:17)
[2022-01-18] MEDS ORDERED: MAGNESIUM OXID400 MG PO (12:17)
[2022-01-18] MEDS ORDERED: TRELEGY ELLIPT1 EACH INH (12:17)
[2022-01-18] MEDS ORDERED: KETOCONAZOLE120 ML (12:17)
[2022-01-18] MEDS ORDERED: TRULICITY1.5 MG/0.5 SQ (12:17)
[2022-01-18] MEDS ORDERED: GLUCOSAMINE CH1 EA10 (12:17)
[2022-01-18] MEDS ORDERED: SODIUM CHLORIDE 0.9% 1000ML 1,000 ML IV SCH (13:00)
[2022-01-18] MEDS ORDERED: IOPAMIDOL 370 MG/ML 100 ML INFUS..BTL INJ ONE (13:06)
[2022-01-18] MEDS ORDERED: FUROSEMIDE INJ 10 MG/ML 4 ML VIAL IV ONE (13:45)
[2022-01-18] MEDS ORDERED: FUROSEMIDE INJ 10 MG/ML 4 ML VIAL ONE (14:28)
[2022-01-18] MEDS ORDERED: SODIUM CHLORIDE FLUSH 10 ML SYR INJ PRN (16:00)
[2022-01-18] MEDS ORDERED: DEXTROSE 50% SYRINGE 50 ML IV PRN (16:15)
[2022-01-18] MEDS: INSULIN LISPRO 100 UNIT/1 ML 3ML VIAL SQ SCH ×2 (16:30→21:55)
[2022-01-18] MEDS ORDERED: ONDANSETRON HCL INJ 2MG/ML 2ML 2 MG/ML VIAL IV PRN (20:00)
[2022-01-18] MEDS ORDERED: ACETAMINOPHEN 325 MG TAB PO PRN (20:00)
[2022-01-18] MEDS ORDERED: ALBUTEROL SULFATE HFA 8GM INHALATION AEROSOL INH PRN (20:00)
[2022-01-18 20:13] LABS: CREATINE KINASE MB 5.9 ng/mL (0-5.0)
[2022-01-18] MEDS ORDERED: CLONIDINE HCL 0.1 MG TAB PO PRN (20:15)
[2022-01-18 20:30] VITALS: BP 150/64
[2022-01-18] MEDS ORDERED: MELATONIN 3 MG TAB PO SCH (21:00)
[2022-01-18] MEDS ORDERED: ATORVASTATIN 20 MG TAB PO SCH (21:00)
[2022-01-18] MEDS: AZITHROMYCIN 250 MG TAB PO SCH (21:42)
[2022-01-18] MEDS: APIXABAN 5 MG TABLET PO SCH (21:42)
[2022-01-18] MEDS: METHYLPREDNISOLONE SOD SUCC 125 MG/2ML VIAL IV SCH (21:43)
[2022-01-18 23:41] VITALS: BP 150/64
[2022-01-18 23:47] VITALS: BP 150/64
[2022-01-19] VITALS: BP 127/81
[2022-01-19 02:47] LABS: CREATINE KINASE MB 4.5 ng/mL (0-5.0)
[2022-01-19 04:00] VITALS: BP 140/72
[2022-01-19] MEDS ORDERED: ALBUTEROL SULF 0.083% NEB SOLN 3 ML NEB NEB PRN (06:30)
[2022-01-19] MEDS: INSULIN LISPRO 100 UNIT/1 ML 3ML VIAL SQ SCH (08:00)
[2022-01-19 08:14] VITALS: BP 133/75
[2022-01-19 08:34] LABS: BASOPHILS % 0.2 % (0.0-1.0); HEMATOCRIT 29.3 % (34.2-44.1); HEMOGLOBIN 8.3 g/dL (12.0-16.0); LYMPHOCYTES # (AUTO) 0.8 (1.0-3.2); LYMPHOCYTES % 8.4 % (18.0-39.1); MEAN CORPUSCULAR HEMOGLOBIN 21.3 pg (28-32); MEAN CORPUSCULAR HGB CONC 28.3 g/dL (31-35); MEAN CORPUSCULAR VOLUME 75.1 fL (81-99); MONOCYTES # (AUTO) 0.1 (0.2-0.8); MONOCYTES % 0.8 % (4.4-11.3); NEUTROPHILS # (AUTO) 8.1 (2.1-6.9); NEUTROPHILS % 90.3 % (38.7-80.0); PLATELET COUNT 339 x10e3/uL (140-360)
[2022-01-19 08:55] LABS: ANION GAP 14.5 mmol/L (8-16); CALCIUM 9.1 mg/dL (8.4-10.2); CHOL/HDL RATIO 2.8 (3.0-3.6); CREATININE, SERUM 1.41 mg/dL (0.57-1.11); POTASSIUM 4.5 mmol/L (3.5-5.1)
[2022-01-19] MEDS ORDERED: FUROSEMIDE INJ 10 MG/ML 4 ML VIAL IV SCH (09:00)
[2022-01-19] MEDS ORDERED: PANTOPRAZOLE SOD 40 MG TABEC PO SCH (09:00)
[2022-01-19] MEDS ORDERED: AMLODIPINE BESYLATE 10 MG TAB PO SCH (09:00)
[2022-01-19] MEDS ORDERED: MAGNESIUM OXIDE 400 MG TAB PO SCH (09:00)
[2022-01-19] MEDS ORDERED: NON-FORMULARY MEDICATION (Fluticasone/Umeclidin/Vilanter (Trelegy Ellipta 100-62.5-25) 1 I INH SCH (09:00)
[2022-01-19] MEDS ORDERED: CITALOPRAM HYDROBROMIDE 20 MG TAB PO SCH (09:00)
[2022-01-19 09:01] LABS: CREATINE KINASE MB 3.8 ng/mL (0-5.0)
[2022-01-19] MEDS: AZITHROMYCIN 250 MG TAB PO SCH (09:05)
[2022-01-19] MEDS: APIXABAN 5 MG TABLET PO SCH (09:05)
[2022-01-19] MEDS: METHYLPREDNISOLONE SOD SUCC 125 MG/2ML VIAL IV SCH (09:05)
[2022-01-19] MEDS ORDERED: LASIX20 MG PO (10:25)
== END 2022-01-19 11:29 | disposition home or self-care (01) | DRG 293 ==
LOC: MERGE 12:00 → FSED 12:00 → ERHOLD 16:01 → MED/SURG 19:05
PROVIDERS: ADMIT Internal Medicine; ATTEND Internal Medicine
DX: I11.0 Hypertensive heart disease with heart failure (principal); I50.9 Heart failure, unspecified; J44.9 Chronic obstructive pulmonary disease, unspecified; E11.9 Type 2 diabetes mellitus without complications; Z86.718 Personal history of other venous thrombosis and embolism; Z79.01 Long term (current) use of anticoagulants; K44.9 Diaphragmatic hernia without obstruction or gangrene; R60.0 Localized edema; E78.00 Pure hypercholesterolemia, unspecified
CPT/HCPCS: 36415; 71260; 80048; 80053; 80061; 81003; 82550; 82553; 82948; 83880; 84484; 85025; 85379; 93005; 96374; 99284; J1940; J2930; J7030; Q9967

== ENCOUNTER 2024-06-01 15:55 | Outpatient (RCR) | payer MEDICARE ==
[~2024-06-01 15:55] MED LIST changes: +ALLEGRA-D 24 H1 EACH PO; +ALLOPURINOL100 MG PO; +ATORVASTATIN CA20 MG PO; +AUGMENTIN 500-1 EACH PO; +CALCIUM 600 +1 EACH; +CELEXA20 MG PO; +DYMISTA NASAL S23 GM INH; +ELIQUIS5 MG PO; +ENTRESTO 24 MG1 EACH; +FAMOTIDINE40 MG; +FLUOCINONIDE-E15 GM; +FLUTICASONE P15.8 ML; +GLIPIZIDE5 MG PO; +GLUCOSAMINE CH1 EA10; +HYDROCORTISONE114 GM TOP; +KETOCONAZOLE120 ML; +LASIX20 MG PO; +LEVALBUTEROL TA15 GM INH; +MAGNESIUM OXID400 MG PO; +MELATONIN3 MG PO; +METOPROLOL SUCC50 MG PO; +MONTELUKAST SOD10 MG PO; +NEURONTIN300 MG PO; +OZEMPIC0.25 MG/0. SC; +PROTONIX20 MG PO; +PROVENTIL HFA6.7 GM INH; +ROSADAN 0.75%1 EACH; +SPIRONOLACTONE25 MG PO; +TRELEGY ELLIPT1 EACH INH; +TRULICITY1.5 MG/0.5 SQ
== END 2024-06-05 ==
LOC: RESP 15:55
PROVIDERS: ATTEND Internal Medicine
DX: J44.9 Chronic obstructive pulmonary disease, unspecified (principal)
CPT/HCPCS: 94626 ×3; 94799; G0238 ×3

== ENCOUNTER 2024-06-18 14:00 | Outpatient (RCR) | payer MEDICARE | END 2024-07-03 | LOC: RESP 14:00 | PROVIDERS: ATTEND Internal Medicine | DX: J44.9 Chronic obstructive pulmonary disease, unspecified (principal) | CPT/HCPCS: 94626 ×2; G0238 ×2 ==

== ENCOUNTER 2024-07-15 13:58 | Outpatient (RCR) | payer MEDICARE | END 2024-08-03 | LOC: RESP 13:58 | PROVIDERS: ATTEND Internal Medicine | DX: J44.9 Chronic obstructive pulmonary disease, unspecified (principal) | CPT/HCPCS: 94626 ×2; G0238 ×2 ==